=== PATIENT | male | born 2000 | race Caucasian/White ===

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

== ENCOUNTER 2019-11-14 13:54 | Emergency (ER) | payer SELFPAY ==
--- NOTE | 2019-11-14 15:28 | CT ---
CT BRAIN NONCONTRAST: DATE: 11/14/2019 HISTORY: 18-year-old male status post acute head trauma FINDINGS: There is no evidence of acute intra-axial or extra-axial hemorrhage. There is no midline shift or any other mass effect. There is no extra-axial fluid collection. There is no evidence of obstructive hydrocephalus. Calvarium is intact. IMPRESSION: No acute intracranial findings.
--- NOTE | 2019-11-14 15:30 | CT ---
CT CERVICAL SPINE NONCONTRAST: DATE: 11/14/2019 HISTORY: 18-year-old male status post acute cervical trauma FINDINGS: There are no jumped or perched facets. There is no evidence of acute fracture. The vertebral body hei ghts are maintained. There is no prevertebral soft tissue swelling. IMPRESSION: No evidence of acute fracture or acute traumatic subluxation.
[2019-11-14] MEDS ORDERED: Ibuprofen 200 MG TAB ONE (15:37)
== END 2019-11-14 15:50 | disposition home or self-care (01) ==
LOC: ERS 13:54
DX: S00.03XA Contusion of scalp, initial encounter (principal); W22.8XXA Striking against or struck by other objects, initial encounter
CPT/HCPCS: 70450; 72125; L0120

== ENCOUNTER 2020-01-24 17:58 | Emergency (ER) | payer SELFPAY ==
[2020-01-24 19:00] LABS: Bilirubin Negative (Negative); Blood, Urine Negative (Negative); Clarity Clear (Clear); Glucose, Urine (Dipstick) Normal (Negative); Leukocyte Negative Leu/uL (Negative); Nitrite Negative (Negative); Protein, Urine (Dipstick) Negative (Neg-Trace); Urobilinogen Normal mg/dL (Less than 2)
[2020-01-24] MEDS ORDERED: Lidocaine 1% PF 5 ML VIAL ONE (19:06)
[2020-01-24] MEDS ORDERED: cefTRIAXone\\ROCEPHIN 250 MG VIAL ONE (19:06)
[2020-01-24] MEDS ORDERED: Azithromycin 250 MG TAB ONE (19:06)
[2020-01-26 22:00] LABS: Chlam.trachomatis by PCR,Urine DETECTED (NotDetected)
== END 2020-01-24 19:45 | disposition home or self-care (01) ==
LOC: ERS 17:58
DX: Z20.2 Contact with and (suspected) exposure to infections with a predominantly sexual mode of transmission (principal)
CPT/HCPCS: 81003; 87491; 87591; 96372; 99283; J0696; J2001